=== PATIENT | male | born 1955 | race Caucasian/White ===

== ENCOUNTER → 2021-11-30 07:45 | Outpatient (CLI) | payer BC, SELFPAY ==
--- NOTE | ~2021-11-30 | MR_ITS ---
. EXAMINATION: MR lumbar spine wo con DATE: 11/30/2021 08:16 INDICATION: Radiculopathy, lumbar region. Low back pain. Right leg pain. TECHNIQUE: Magnetic resonance imaging (MRI) of the lumbar spine was performed without intravenous con trast. Sequences included sagittal T2-weighted FSE, sagittal T2-weighted FS FSE, sagittal T1-weighted FSE, and axial T2-weighted FSE. COMPARISON: None FINDINGS: There is 5 degrees levocurvature of lumbar spine. Vertebral body heights are normal. There is severely decreased disc height from L3-L4 through L5-S1 with endplate remodeling. The distal spina l cord signal intensity is normal. The conus medullaris is at L1. The following disc levels are speci fically discussed: L1-L2: There is a left foraminal protrusion with annular fissure. There is mild bilateral facet joint osteoarthritis. There is mild left neural foraminal stenosis. There is no central canal stenosis. L2-L3: The disc is bulging. There is mild right and moderate left facet joint osteoarthritis. There i s mild left neural foraminal stenosis. There is mild central canal stenosis. L3-L4: The disc is bulging and has an annular fissure. There is moderate bilateral facet joint osteoa rthritis. There is a 5 x 8 mm synovial cyst from right facet joint in the right lateral recess. There is moderate right and mild left neural foraminal stenosis. There is mild central canal stenosis at t he midline. There is severe stenosis of right lateral recess L4-L5: The disc is bulging and has an annular fissure. There is mild bilateral facet joint osteoarthr itis. There is moderate bilateral neural foraminal stenosis. There is mild central canal stenosis. L5-S1: The disc is bulging and has an annular fissure. There is mild right and moderate left facet pily int osteoarthritis. There is mild right and moderate left neural foraminal stenosis. There is mild ce ntral canal stenosis. IMPRESSION: 1. Severe lumbar spondylosis. Of note, there is severe stenosis of right lateral recess at L3-L4 seco ndary to the combination of facet joint osteoarthritis with synovial cyst and a bulging disc. Reviewed, dictated and finalized at location A. IMPRESSION: 1. Severe lumbar spondylosis. Of note, there is severe stenosis of right latera l recess at L3-L4 secondary to the combination of facet joint osteoarthritis wi th synovial cyst and a bulging disc.
== END ==
PROVIDERS: PCP Internal Medicine; Visit Provider Nurse Practitioner Family
DX: M47.817 Spondylosis without myelopathy or radiculopathy, lumbosacral region (principal); M48.07 Spinal stenosis, lumbosacral region
CPT/HCPCS: 72148

== ENCOUNTER 2025-01-03 08:57 | Outpatient (CLI) | payer MEDICARE, SELFPAY ==
--- NOTE | ~2025-01-03 | XR_ITS ---
[id number] 01/03/2025 09:14 Indication: Right knee pain Procedure: 2 views right knee Comparison: No prior studies for comparison. Findings: There are multiple osteochondromas originating from the proximal tibia and fibula. No fract ure, subluxation or dislocation. There is anatomic alignment. No joint space narrowing. No joint effu rhona. 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 2: No acute bone or joint abnormality. Reviewed, dictated and finalized at location A. Impression: 1: Multiple osteochondromas originating from the proximal tibia and fibular met aphysis. 2: No acute bone or joint abnormality.
== END 2025-01-03 08:58 | disposition home or self-care (01) ==
LOC: MICIMG 09:03
PROVIDERS: PCP Nurse Practitioner Family; Visit Provider Nurse Practitioner Family
DX: D16.21 Benign neoplasm of long bones of right lower limb (principal)
CPT/HCPCS: 73560